=== PATIENT | male | born 1985 | race African-American/Black ===

== ENCOUNTER 2019-06-24 11:59 | Emergency (ER) | payer MEDICAID ==
[~2019-06-24] VITALS: Ht 185.4 cm; Wt 97.0 kg
[2019-06-24] MEDS ORDERED: SODIUM CHLORIDE 0.9% 1,000 ML IV ONE (12:37)
[2019-06-24] MEDS ORDERED: ACETAMINOPHEN 325MG TABLET PO STA (12:37)
[2019-06-24] MEDS ORDERED: ONDANSETRON HCL 4MG/2ML INJ IV STA (12:37)
[2019-06-24] MEDS ORDERED: KETOROLAC 30MG/ML VIAL IV STA (12:37)
[2019-06-24 13:01] LABS: BASOPHILS % 0.4 % (0.0-2.0); EOSINOPHILS % 0.2 % (0.0-5.0); HEMOGLOBIN. 14.8 g/dL (14.0-18.0); LYMPHOCYTES % 28.7 % (20.0-50.0); MEAN CORPUSCULAR HEMOGLOBIN 29.4 pg (28.0-32.0); MEAN CORPUSCULAR VOLUME 85.4 fL (80.0-94.0); MEAN PLATELET VOLUME 7.8 fl (7.4-10.4); MONOCYTES % 10.7 % (2.0-8.0); PLATELET 206 x1000/uL (130-400); RED BLOOD CELL COUNT 5.04 mill/uL (4.7-6.1); RED CELL DISTRIBUTION WIDTH 14.3 % (11.6-14.6)
[2019-06-24 13:08] LABS: CHLORIDE 105 mEq/L (98-107)
[2019-06-24 14:50] LABS: CLARITY URINE CLEAR (CLEAR); COLOR URINE DARK YELLOW (YELLOW); KETONES URINE 3+ (NEGATIVE); LEUKOCYTE ESTERASE URINE TRACE (NEGATIVE); NITRITE URINE NEGATIVE (NEGATIVE); OCCULT BLOOD URINE NEGATIVE (NEGATIVE); PROTEIN URINE 3+ (NEGATIVE); SPECIFIC GRAVITY URINE 1.037 (1.005-1.030)
[2019-06-24] MEDS ORDERED: METOCLOPRAMIDE HCL 10MG/2ML VIAL IV ONE (15:15)
[2019-06-24 15:28] VITALS: BP 124/77
== END 2019-06-24 16:03 | disposition home or self-care (01) ==
LOC: ER 12:06
DX: R11.2 Nausea with vomiting, unspecified (principal); I10 Essential (primary) hypertension
CPT/HCPCS: 36415; 71045; 80053; 81003; 83690; 85025; 96361; 96374; 96375; 99284; J1885; J2405; J2765; J7030

== ENCOUNTER 2022-04-04 19:01 | Emergency (ER) | payer MEDICAID, OTHER ==
[~2022-04-04] VITALS: Ht 185.4 cm; Wt 109.0 kg
[2022-04-04 19:06] VITALS: BP 127/77
== END 2022-04-04 22:30 | disposition left against medical advice (07) ==
LOC: ER 19:01
DX: Z53.21 Procedure and treatment not carried out due to patient leaving prior to being seen by health care provider (principal); E78.00 Pure hypercholesterolemia, unspecified; I10 Essential (primary) hypertension; Z98.890 Other specified postprocedural states

== ENCOUNTER 2024-06-20 11:38 | Emergency (ER) | payer SELFPAY ==
[~2024-06-20] VITALS: Ht 172.7 cm; Wt 70.0 kg
[2024-06-20 11:43] VITALS: TEMP 98; O2SAT 96
[2024-06-20] MEDS: IBUPROFEN 600MG TABLET PO ONE (12:32)
[2024-06-20] MEDS ORDERED: IBUP-2029 MT (12:38)
[2024-06-20 12:59] VITALS: BP 126/78; PULSE 74; RESP 16; O2SAT 99
== END 2024-06-20 13:00 | disposition home or self-care (01) ==
LOC: ER 11:38
DX: S63.502A Unspecified sprain of left wrist, initial encounter (principal); M79.642 Pain in left hand; E78.00 Pure hypercholesterolemia, unspecified; I10 Essential (primary) hypertension; W22.8XXA Striking against or struck by other objects, initial encounter; Y93.89 Activity, other specified; Y92.89 Other specified places as the place of occurrence of the external cause; Y99.8 Other external cause status
CPT/HCPCS: 29125; 73100; 73120; 99284

== ENCOUNTER 2024-08-15 21:53 | Emergency (ER) | payer BC ==
[~2024-08-15] VITALS: Ht 185.4 cm; Wt 111.0 kg
[~2024-08-15 21:53] MED LIST: IBUP-2029 MT
[2024-08-15 22:06] VITALS: BP 140/93; PULSE 74; RESP 18; TEMP 98.6; O2SAT 100
== END 2024-08-16 00:01 | disposition left against medical advice (07) ==
LOC: ER 21:53
DX: R07.9 Chest pain, unspecified (principal); R53.83 Other fatigue; E78.00 Pure hypercholesterolemia, unspecified; I10 Essential (primary) hypertension; Z53.21 Procedure and treatment not carried out due to patient leaving prior to being seen by health care provider
CPT/HCPCS: 93005

== ENCOUNTER 2025-03-01 11:01 | Emergency (ER) | payer BC ==
[~2025-03-01] VITALS: Ht 182.9 cm; Wt 91.0 kg
[2025-03-01 11:08] VITALS: O2SAT 100
[2025-03-01 11:43] LABS: BASOPHILS % 0.5 % (0.0-2.0); EOSINOPHILS % 1.3 % (0.0-5.0); HEMATOCRIT. 37.7 % (42.0-52.0); HEMOGLOBIN. 12.9 g/dL (14.0-18.0); LYMPHOCYTES % 46.4 % (20.0-50.0); MEAN PLATELET VOLUME 7.6 fl (7.4-10.4); MONOCYTES % 9.4 % (2.0-8.0); NEUTROPHILS % 42.4 % (40.0-76.0); PLATELET 217 x1000/uL (130-400); RED BLOOD CELL COUNT 4.45 mill/uL (4.7-6.1); RED CELL DISTRIBUTION WIDTH 15.0 % (11.6-14.6)
[2025-03-01 11:57] LABS: INR 1.0
[2025-03-01 11:58] LABS: CREATININE 1.2 mg/dL (0.6-1.3); TROPONIN I HIGH SENSITIVITY 4 ng/L (3.0-53)
[2025-03-01 11:59] LABS: UREA NITROGEN BLOOD 7 mg/dL (9-23)
[2025-03-01 12:00] LABS: ASPARTATE AMINOTRANSFERASE 25 IU/L (<34)
[2025-03-01 12:01] LABS: BILIRUBIN DIRECT 0.2 mg/dL (<=3.0); BILIRUBIN TOTAL 0.7 mg/dL (0.1-1.0); PROTEIN TOTAL 6.6 g/dL (6.0-8.3)
[2025-03-01] MEDS ORDERED: NITR0.4T49 SL (12:25)
[2025-03-01 12:32] VITALS: BP 143/95; PULSE 80; RESP 12; TEMP 37.2; O2SAT 100
== END 2025-03-01 13:04 | disposition home or self-care (01) ==
LOC: ER 11:01
DX: R07.89 Other chest pain (principal); E78.00 Pure hypercholesterolemia, unspecified; I10 Essential (primary) hypertension; R06.02 Shortness of breath; Z79.899 Other long term (current) drug therapy; Z98.890 Other specified postprocedural states
CPT/HCPCS: 36415; 71045; 80048; 80076; 83880; 84484; 85025; 99284